=== PATIENT | male | born 1995 | race Caucasian/White ===

== ENCOUNTER 2022-01-05 15:19 | Outpatient (CLI) | payer BC | END 2022-01-05 15:20 | disposition home or self-care (01) | LOC: BICRAD 15:19 | PROVIDERS: ATTEND Family Medicine | DX: R22.2 Localized swelling, mass and lump, trunk (principal) | CPT/HCPCS: 72100 ==

== ENCOUNTER 2024-10-06 07:56 | Outpatient (CLI) | payer BC, OTHER ==
[2024-10-06] MEDS ORDERED: Magnevist 469MG/ML 20 ML VIAL ONE (15:32)
== END 2024-10-06 07:57 | disposition home or self-care (01) ==
LOC: BICMRI 07:56
PROVIDERS: ATTEND Family Medicine
DX: R22.2 Localized swelling, mass and lump, trunk (principal)
CPT/HCPCS: 72158